=== PATIENT | female | born 1990 | race Asian ===

== ENCOUNTER 2016-12-24 06:31 | Day surgery (SDC) | payer BC ==
[2016-12-23 12:35] VITALS: BMI 37.2
[2016-12-24] MEDS ORDERED: DESFLURANE GAS 240 ML BOTTLE IH ONE (07:36)
[2016-12-24] MEDS ORDERED: MIDAZOLAM HCL 2 MG/2 ML SINGLE DOSE VIAL ONE (07:38)
[2016-12-24] MEDS ORDERED: LIDOCAINE HCL/PF 2% SDV 5ML VIAL ONE (07:48)
[2016-12-24] MEDS ORDERED: DEXAMETHASONE SOD PHOSPHATE 4 MG/1 ML VIAL ONE ×2 (07:48→11:02)
[2016-12-24] MEDS ORDERED: ROCURONIUM BROMIDE 50 MG/5 ML VIAL ONE ×2 (07:49→09:07)
[2016-12-24] MEDS ORDERED: PROPOFOL 20 ML ONE (07:49)
[2016-12-24] MEDS ORDERED: ceFAZolin SODIUM 1 GM VIAL ONE (07:50)
[2016-12-24] MEDS ORDERED: ceFAZolin SODIUM 1 GM VIAL IVPB ONE (08:11)
[2016-12-24] MEDS ORDERED: METHYLENE BLUE 1% 10 MG/1 ML VIAL ONE (09:05)
[2016-12-24] MEDS ORDERED: oxyCODONE HCL 5 MG TABLET PO PRN (12:08)
[2016-12-24] MEDS ORDERED: ONDANSETRON 4 MG/2 ML VIAL IVPUSH PRN (12:08)
--- NOTE | 2016-12-24 12:14 | SURG ---
Surgery Proofer Note Proofer: Agustin Herrera PA-C Date of Service: 12/24/16 Diagnosis: Symptomatic macromastia Procedure: Bilateral breast reduction I was present for the entirety of the operative procedure. For further detail, please refer to operative report. Visit type - Case Type Case Type: Scheduled Admission - New patient This patient is new to me today: Yes Date on this admission: 12/24/16
[2016-12-24] MEDS ORDERED: LACTATED RINGERS SOLUTION 1,000 ML IV SCH (12:15)
[2016-12-24] MEDS ORDERED: ONDANSETRON 4 MG/2 ML VIAL IVPB ONE (12:15)
--- NOTE | 2016-12-24 12:15 | OP ---
Operative Note - Note: Operative Date: 12/24/16 Pre-Operative Diagnosis: Symptomatic Macromastia Operation: Bilateral Reduction Mammaplasty Post-Operative Diagnosis: Same as Pre-op Surgeon: Satinder Calderon Vocational Rehabilitation Counselor: Agustin Herrera Anesthesiologist/OUTSOLE ROUNDER: Arvin White Anesthesia: General Estimated Blood Loss (mls): 200 Drains & Tubes with Location: Michelle Drain each side Operative Report Dictated: Yes
[2016-12-24] MEDS ORDERED: ONDANSETRON 4 MG/2 ML VIAL ONE (12:29)
--- NOTE | 2016-12-24 13:26 | OP ---
DATE OF OPERATION: 12/24/2016 PREOPERATIVE DIAGNOSIS: Symptomatic macromastia. POSTOPERATIVE DIAGNOSIS: Symptomatic macromastia. PROCEDURE PERFORMED: Bilateral reduction mammoplasty. SURGEON: Satinder Gorman MD SUSTAINABILITY ENGINEER: FABRIZIO Hawkins ANESTHESIA: General endotracheal tube. DESCRIPTION OF PROCEDURE: The patient was on the operating room table in supine position. General anesthesia was administered by the anesthesiologist. The area of the chest was prepped and draped in the usual sterile fashion. The patient had been marked 1 day prior to surgery in a standing position, and these markings were now used as a guide for surgery. The right breast was addressed first. A tourniquet was placed at the base of the right base and a 10-cm wide superior and inferiorly based pedicle (bipedicle) was designed and deepithelialized inferior to the nipple areolar complex. The pedicle was then created by medial and lateral dissections as marked. Excess tissue was removed in the medial and the lateral quadrants as well as some tissue superiorly. The long inferior portion of the pedicle was shortened using a 3-0 Biosyn suture in continuous fashion, and hemostasis was achieved with electrocautery. Total resection on the right side was 1229 g. A [place] drain was placed exiting the lateral inframammary wound, and several 3-0 Biosyn sutures were placed to tack the wound closed. The left breast was then approached, and a similar procedure was performed. The left breast, which was smaller preoperatively, had a resection of 940 g. This wound was similarly tacked closed, and the patient was moved to the sitting position to access for volume symmetry. She was then returned to the supine position for closure. Deep tissues were closed with No. 3-0 and 4-0 Biosyn suture in interrupted buried fashion. The skin was closed with a deep dermal layer of 4-0 V-Lock 90. Several 5-0 nylon sutures were used for closure as well. The [place] drains, which exited the inframammary wounds laterally, were sutured in place with 2-0 skin suture, and the V-Lock suture was loosely placed around the drain and will be pulled tight when the drain is removed tomorrow. Steri-Strips and sterile dressings were applied and secured with a surgical bra. The patient was then awoken from anesthesia without any difficulty and taken from the operating room to the recovery room in satisfactory condition having tolerated the procedure well. SATINDER GORMAN M.D. [id number]
[2016-12-24 14:02] VITALS: TEMP 97.7
[2016-12-24 15:49] VITALS: BP 148/84; PULSE 96
--- NOTE | 2016-12-25 14:03 | PATH ---
Surgical Pathology Report Patient Name: VANCE MOTLEY [facility]. Rec. #: [id number] /Age/Gender: 1990 (Age: 26) / F Account: [id number] Location: [facility] SURGICAL Taken: 12/24/2016 Received: 12/24/2016 Reported: 12/25/2016 Physicians: Satinder Calderon M.D. Specimen(s) Received A: RIGHT BREAST TISSUE B: LEFT BREAST TISSUE Clinical History Preop-macromastia Final Diagnosis A. BREAST, RIGHT, REDUCTION MAMMOPLASTY: BENIGN BREAST TISSUE WITH FOCI OF FIBROCYSTIC CHANGE. BENIGN SKIN. B. BREAST, LEFT, REDUCTION MAMMOPLASTY: BENIGN BREAST TISSUE WITH FOCI OF FIBROCYSTIC CHANGE. BENIGN SKIN. Electronically Signed Enrico Briceño M.D. Gross Description A. Received in formalin labeled "right breast tissue" is a 1241 g, 34.0 x 15.0 x 5.5 cm irregular, unoriented portion of fibrofatty tissue and [place], unremarkable skin. Sectioning reveals multiple foci of white fibrous tissue. No definitive masses are identified. Director Of Materials sections are submitted in 4 cassettes. B. Received in formalin labeled "left breast tissue" is a 955 g, 28.0 x 17.5 x 4.5 cm aggregate of multiple irregular, unoriented portions of fibrofatty tissue and [place], unremarkable skin. Sectioning reveals multiple foci of white fibrous tissue. No definitive masses are identified. Director Of Materials sections are submitted in 4 cassettes. /12/24/2016 saudi12/24/2016
== END 2016-12-24 16:00 | disposition home or self-care (01) ==
LOC: JASU-SURG 06:31
PROVIDERS: ATTEND Plastic Surgery
PROC: 0HBV0ZZ Excision of Bilateral Breast, Open Approach (ICD-10-PCS; principal; 2016-12-24 08:00)
DX: N62 Hypertrophy of breast (principal); M54.2 Cervicalgia; M54.89 Other dorsalgia; M25.512 Pain in left shoulder; M25.511 Pain in right shoulder
CPT/HCPCS: 84703; 88305-TC; 94760

== ENCOUNTER 2017-11-18 06:38 | Day surgery (SDC) | payer BC ==
[2017-11-17 09:21] VITALS: BMI 38.6
[2017-11-18] MEDS ORDERED: MIDAZOLAM HCL 2 MG/2 ML SINGLE DOSE VIAL ONE (08:11)
[2017-11-18] MEDS ORDERED: PROPOFOL 20 ML ONE ×2 (08:21)
[2017-11-18] MEDS ORDERED: ROCURONIUM BROMIDE 50 MG/5 ML VIAL ONE (08:21)
[2017-11-18] MEDS ORDERED: ceFAZolin SODIUM 1 GM VIAL IVPB ONE (08:24)
[2017-11-18] MEDS ORDERED: ONDANSETRON 4 MG/2 ML VIAL IVPUSH PRN (10:01)
[2017-11-18] MEDS ORDERED: oxyCODONE HCL 5 MG TABLET PO PRN (10:01)
[2017-11-18] MEDS ORDERED: LACTATED RINGERS SOLUTION 1,000 ML IV SCH (10:15)
--- NOTE | 2017-11-18 11:23 | OP ---
Operative Note - Note: Operative Date: 11/18/17 Pre-Operative Diagnosis: Palpable Mass Right Breast, Painful Contracted Scar Lower Right Breast with Parenchymal Descent and Breast Asymmetry after Breast Reduction Operation: Excision Breast Mass Lower Medial Quadrant, Excision of Painful Lower Breast Scar with Revision of Breast Reduction and Elevation of Breast Parenchyma for Symmetry. Post-Operative Diagnosis: Same as Pre-op Surgeon: Satinder Calderon Anesthesia: General Specimens Removed: Right Breast Mass. Thickened Breast Scar. Operative Report Dictated: Yes
--- NOTE | 2017-11-18 11:48 | OP ---
DATE OF OPERATION: 11/18/2017 PREOPERATIVE DIAGNOSES: 1. Palpable mass right breast. 2. Painful, contracted scar of the lower right breast with parenchymal descent and breast asymmetry after breast reduction. POSTOPERATIVE DIAGNOSES: 1. Palpable mass right breast. 2. Painful, contracted scar of the lower right breast with parenchymal descent and breast asymmetry after breast reduction. PROCEDURES PERFORMED: 1. Excision breast mass lower medial quadrant, right breast. 2. Excision of painful lower breast scar with revision of breast reduction and elevation of breast parenchyma for symmetry. SURGEON: Satinder Gorman MD ANESTHESIA: General via endotracheal tube. BRIEF HISTORY: The patient is a 26-year-old female who is status post bilateral breast reduction. The patient developed a postoperative infection on the right lower breast, which resulted in separation of the vertical limb and secondary healing. The patient also developed several sites of fat necrosis, which resolved except for a large mass in the left lower quadrant, which has persisted. The resulting jeanine scar in the inferior pole of the breast has allowed descent of the breast parenchyma creating significant asymmetry and a painful overlying scar. The patient now presents for correction. DESCRIPTION OF PROCEDURE: The patient was on the operating room table in supine position. General anesthesia was administered by the anesthesiologist. The area of the chest was then prepped and draped in the usual sterile fashion. The patient was marked for surgery in the standing position, and the patient is now on the operating table in a supine position, and these markings are used as a guide for surgery. The scar was excised as marked with extensions in both directions in both the inframammary folds and the lower portion of the areola. Medial and lateral flaps were then created, and a large mass inferomedially was identified. This mass was circumferentially excised, and hemostasis was achieved with electrocautery. The space was closed using 3-0 Biosyn suture in an interrupted fashion. The lower breast parenchyma was re-elevated, and pillars were sutured using 3-0 Biosyn suture in a continuous over and over fashion to elevate this region. The flaps were then further undermined both medially and laterally to facilitate closure, and this tissue was mobilized, and flaps were reapproximated centrally. These flaps were then closed in layered fashion. Deep tissues were closed with No. 3-0 Biosyn suture in interrupted buried fashion. A deep dermal layer of 4-0 V-Lock 90 was used to close the vertical limb, and multiple 4-0 nylon sutures in both simple interrupted and interrupted horizontal mattress fashion were used to further secure the skin. Sterile dressings were then applied and secured with a surgical bra. The patient was awoken from anesthesia without any difficulty. She was taken from the operating room to the recovery room in satisfactory condition having tolerated the procedure well. SATINDER GORMAN M.D. [id number]
[2017-11-18 11:50] VITALS: TEMP 97.6
[2017-11-18 13:13] VITALS: BP 120/72; PULSE 92
--- NOTE | 2017-11-19 13:54 | PATH ---
Surgical Pathology Report Patient Name: VANCE MOTLEY Med. Rec. #: [id number] /Age/Gender: 1990 (Age: 26) / F Account: [id number] Location: [facility] SURGICAL Taken: 11/18/2017 Received: 11/18/2017 Reported: 11/19/2017 Physicians: Satinder Calderon M.D. Specimen(s) Received A: SKIN FROM RIGHT BREAST B: RIGHT BREAST TISSUE Clinical History Right breast reduction Revision Final Diagnosis A. SKIN, RIGHT BREAST, EXCISION: SKIN WITH DERMAL SCAR B. RIGHT BREAST, REDUCTION REVISION: BENIGN BREAST TISSUE WITH EXTENSIVE FIBROSIS AND FAT NECROSIS. Electronically Signed Milo Victoria M.D. Gross Description A. Received in formalin labeled "skin from right breast," is a 10.5 x 5.0 cm [place], unoriented portion of skin. The epidermal surface displays focal defects. No discrete lesions are identified. Ironworker Wire Fence Erector sections are submitted in one cassette. B. Received in formalin labeled "right breast tissue," is a 22 g, 5.3 x 4.3 x 2.2 cm aggregate of multiple unoriented portions of fibroadipose tissue. Sectioning reveals foci of fibrous tissue and fat necrosis. No definitive masses are identified. Ironworker Wire Fence Erector sections are submitted in one cassette. 11/18/201711/18/2017
== END 2017-11-18 13:00 | disposition home or self-care (01) ==
LOC: JASU-SURG 06:38
PROVIDERS: ATTEND Plastic Surgery
PROC: 0HBT0ZX Excision of Right Breast, Open Approach, Diagnostic (ICD-10-PCS; 2017-11-18)
PROC: 0HRT07Z Replacement of Right Breast with Autologous Tissue Substitute, Open Approach (ICD-10-PCS; principal; 2017-11-18 08:00)
DX: N64.1 Fat necrosis of breast (principal); N63.41 Unspecified lump in right breast, subareolar; N60.31 Fibrosclerosis of right breast; L90.5 Scar conditions and fibrosis of skin; N65.1 Disproportion of reconstructed breast
CPT/HCPCS: 84703; 94760

== ENCOUNTER 2019-10-09 09:18 | Inpatient (IN) | payer BC ==
[2019-10-03 11:52] VITALS: BMI 40.3
[2019-10-09] MEDS ORDERED: ROCURONIUM BROMIDE 50 MG/5 ML SYRINGE ONE (11:45)
[2019-10-09] MEDS ORDERED: PROPOFOL 20 ML ONE ×2 (11:45)
[2019-10-09] MEDS ORDERED: DESFLURANE GAS 240 ML BOTTLE IH ONE (11:46)
[2019-10-09] MEDS ORDERED: ONDANSETRON 4 MG/2 ML VIAL ONE (11:46)
[2019-10-09] MEDS ORDERED: DEXAMETHASONE SOD PHOSPHATE 4 MG/1 ML VIAL ONE ×2 (11:46→15:47)
[2019-10-09] MEDS ORDERED: ceFAZolin SODIUM 1 GM VIAL ONE ×2 (11:46→15:47)
[2019-10-09] MEDS ORDERED: KETOROLAC TROMETHAMINE 30 MG/1 ML VIAL ONE ×2 (11:46→15:47)
[2019-10-09] MEDS ORDERED: SODIUM CHLORIDE 0.9% P/F 10 ML VIAL IJ ONE (12:47)
[2019-10-09] MEDS ORDERED: MIDAZOLAM HCL 2 MG/2 ML SINGLE DOSE VIAL ONE (12:47)
[2019-10-09] MEDS ORDERED: BUPIVACAINE HCL/PF 0.5% (5 MG/ML) 30 ML VIAL IJ ONE (12:47)
[2019-10-09] MEDS ORDERED: BUPIVACAINE HCL/PF 2.5 MG/ML - 30 ML VIAL IJ ONE (12:59)
[2019-10-09] MEDS ORDERED: BUPIVACAINE HCL/PF 0.25% (2.5MG/ML) 10 ML VIAL IJ ONE (14:39)
[2019-10-09] MEDS ORDERED: HYDROmorphone HCl 2 MG/ML VIAL IM PRN (15:06)
[2019-10-09] MEDS ORDERED: ONDANSETRON 4 MG/2 ML VIAL IVPUSH PRN ×2 (15:06→15:49)
--- NOTE | 2019-10-09 15:11 | OP ---
Operative Note - Note: Operative Date: 10/09/19 Pre-Operative Diagnosis: Morbid Obesity Operation: Laparoscopic Vertical Sleeve Gastrectomy. Wedge biopsy of left lobe of liver. Diagnostic Laparoscopy Findings: Greater curve sleeve gastrectomy performed with #[address] Wedge biopsy performed on edge of left lobe of liver Post-Operative Diagnosis: Same as Pre-op (Hepatomegaly) Surgeon: Edinson Pittman Fitness Plan Coordinator: Dexter Sanz Anesthesia: General Specimens Removed: Greater curve of stomach. Wedge biopsy of left lobe of liver Estimated Blood Loss (mls): 30 Operative Report Dictated: Yes
[2019-10-09] MEDS ORDERED: SODIUM CHLORIDE 1,000 ML IV SCH (15:15)
[2019-10-09] MEDS: METOCLOPRAMIDE HCL INJECTION 10 MG/2 ML VIAL IVPUSH SCH ×2 (15:18→21:39)
[2019-10-09 15:33] LABS: HEMOGLOBIN 12.4 GM/dl (10.7-15.3); MCH 26.2 pg (25.7-33.7); MCHC 32.7 g/dl (32.0-36.0); MEAN CELL VOLUME 80.3 fl (80-96); MEAN PLT VOLUME 8.9 fl (7.5-11.1); PLATELET COUNT 328 K/MM3 (134-434); RBC 4.73 M/mm3 (3.60-5.2); RDW 13.1 % (11.6-15.6); WHITE BLOOD COUNT 14.1 K/mm3 (4.0-10.8)
[2019-10-09 15:41] LABS: ALBUMIN 3.7 g/dl (3.4-5.0); BILIRUBIN,TOTAL 0.5 mg/dl (0.2-1); CALCIUM 8.8 mg/dl (8.5-10); CREATININE 0.7 mg/dl (0.55-1.3); POTASSIUM 3.7 mmol/L (3.5-5.1); TOT PROT 7.1 g/dl (6.4-8.2)
[2019-10-09] MEDS ORDERED: PROMETHAZINE HCL 25 MG/1 ML VIAL IVPUSH PRN (15:49)
[2019-10-09] MEDS ORDERED: ACETAMINOPHEN 1000 MG/100 ML VIAL (NON FORMULARY) IVPB ONE (15:50)
[2019-10-09] MEDS ORDERED: LACTATED RINGERS SOLUTION 1,000 ML IV SCH (16:00)
[2019-10-09] MEDS ORDERED: ACETAMINOPHEN INJECTION 100 ML IVPB ONE (16:03)
--- NOTE | 2019-10-09 18:15 | PN ---
Progress Note, Physician Chief Complaint: AWAKE ALERT SEEN IN PACU S/P SLEEVE GASTRECTOMY C/O PAIN BUT CONTROLLED DENIES SOB - Current Medication List Current Medications: Active Medications Enoxaparin Sodium (Lovenox -) 40 mg SQ DAILY [facility] Fentanyl (Sublimaze Injection -) 50 mcg IVPUSH Q5M PRN PRN Reason: PAIN-PACU ORDER X 4 DOSES ONLY Hydromorphone HCl (Dilaudid Vial -) 1 mg IM Q4H PRN PRN Reason: PAIN LEVEL 1-5 Famotidine/Sodium Chloride (Pepcid 20 Mg Premixed Ivpb -) 20 mg in 50 mls @ 100 mls/hr IVPB BID [facility] Sodium Chloride (Normal Saline -) 1,000 mls @ 150 mls/hr IV ASDIR [facility] Last Admin: 10/09/19 16:15 Dose: 0 mls Lactated Ringer's (Lactated Ringers Solution) 1,000 mls @ 125 mls/hr IV ASDIR [facility] Last Admin: 10/09/19 16:15 Dose: 300 mls Metoclopramide HCl (Reglan Injection -) 10 mg IVPUSH Q6H [facility] Last Admin: 10/09/19 15:18 Dose: 10 mg Ondansetron HCl (Zofran Injection) 4 mg IVPUSH Q4H PRN PRN Reason: NAUSEA AND/OR VOMITING Ondansetron HCl (Zofran Injection) 4 mg IVPUSH Q6H PRN PRN Reason: NAUSEA AND/OR VOMITING Promethazine HCl (Phenergan Injection -) 12.5 mg IVPUSH Q6H PRN PRN Reason: NAUSEA-FOR RESCUE AFTER 15 MIN - Objective Vital Signs: Vital Signs Temperature 97.7 F 10/09/19 16:44 Pulse Rate 94 H 10/09/19 16:44 Respiratory Rate 16 10/09/19 16:44 Blood Pressure 126/64 10/09/19 16:44 O2 Sat by Pulse Oximetry (%) 100 10/09/19 16:44 Constitutional: Yes: Mild Distress Cardiovascular: Yes: Regular Rate and Rhythm Respiratory: Yes: Diminished, On Nasal O2 Gastrointestinal: Yes: Abdomen, Obese, Tenderness Genitourinary: Yes: Miller Present Musculoskeletal: Yes: Muscle Weakness Edema: No Wound/Incision: Yes: Dressing Dry and Intact Neurological: Yes: WNL ...Motor Strength: WNL Psychiatric: Yes: WNL Labs: CBC, BMP 10/09/19 15:10 10/09/19 15:10 Problem List - Problems (1) S/P laparoscopic sleeve gastrectomy Code(s): Z98.84 - BARIATRIC SURGERY STATUS Assessment/Plan S/P SLEEVE GASTRECTOMY ON IVF NPO PAIN MEDS 02 SUPPORT INCENTIVE SPIROMETRY TOMORROW PEPCID IV REGLAN IV FOR NAUSEA CHECK LABS OOB TO CHAIR TOMORROW
--- NOTE | 2019-10-09 18:31 | OP ---
DATE OF OPERATION: 10/09/2019 PREOPERATIVE DIAGNOSIS: Morbid obesity. POSTOPERATIVE DIAGNOSES: 1. Morbid obesity. 2. Hepatomegaly. PROCEDURES PERFORMED: 1. Laparoscopic vertical sleeve gastrectomy. 2. Wedge biopsy of the left lobe of the liver. 3. Diagnostic laparoscopy. OPERATING SURGEON: Edinson Pittman MD NUCLEAR INSTRUCTOR: Dexter Sanz MD ANESTHESIA: General. EXPECTED BLOOD LOSS: 30 mL. OPERATIVE PROCEDURE: The patient was brought into the operating room, placed on the OR table in the supine position. All precautions were taken initially including padding for the back and the feet, and Venodyne boots were placed on both lower extremities. At that point, the abdomen was prepped and draped in the usual manner. A Veress needle was placed in the left upper quadrant, and a pneumoperitoneum was established. Under direct vision with a laparoscopic camera, a No. 5 bladeless trocar was placed in the left upper quadrant and then through that trocar, a laparoscopic camera was placed. Under direct vision, a No. 15 bladeless trocar was placed in the midline in the supraumbilical position and a No. 5 bladeless trocar in the right upper quadrant and No. 5 bladeless trocar below the left costal margin. A Darlyn liver retractor was then placed to the epigastrium to retract the left lobe of the liver. The patient was then placed in a 20-degree reverse Trendelenburg position by Anesthesia. The pylorus was noted on distal stomach and from that point, 6 cm was measured proximally. Here, the operating surgeon lifted the anterior abdominal wall of the stomach on the greater curve up towards the anterior abdominal wall, and the bilingual administrative assistant surgeon retracted the gastrocolic ligament inferiorly. The LigaSure device was used to dissect the gastrocolic ligament off the greater curve of the stomach. This continued in a superior and vertical direction dissecting the short gastric vessels off the greater curve until the final short gastric vessel between the superior pole of the spleen and the proximal fundus was divided. At this juncture, Anesthesia advanced a No. 36 bougie along the lesser curve. With the bougie held along the lesser curvature, a series of anuel was performed with the first 2 being black load anuel 6 cm in length along the bougie. This was followed by a series of purple load anuel also 6 cm in length and also hugging the bougie until the final staple was fired in the left upper quadrant, and the greater curve was now completely detached from the lesser curve. It should be noted that prior to firing each staple, both the anterior and posterior flores were checked that they were equal, and in the area of the esophagogastric junction approximately 1 to 1-1/2 cm of serosa remained on the anterior and posterior surfaces. There were some very minor bleeding points noted superiorly at the last 2 anuel that were fired and this staple line was then over sewn with the Endo Stitch until no further bleeding was noted. At this juncture, saline was placed around the staple line. Anesthesia inserted air into the bougie. This showed that the entire stomach distended. No obstruction and no leaks were noted. Attention was now directed to the left lobe of the liver, which was extremely enlarged and had to be moved out of the way with the retractor multiple times to visualize the stomach. A triangular-shaped piece of liver was removed from the left lobe, and this was sent off the field as a specimen to Pathology. The liver biopsy was performed with the LigaSure device and then electrocautery was used to score the parenchyma in order to stop any further oozing that was noted. At this juncture, Surgicel was introduced into the abdominal cavity and placed along the staple line from superior all the way to inferior. The resected greater curve was now removed through the No. 15 site, sent off the field as a specimen to pathology. The No. 15 trocar site was closed with endoclosure device to prevent internal hernia and to prevent bleeding. Under direct vision, all trocars were removed, and pneumoperitoneum was released. All trocar sites received 0.25% Marcaine and were closed with 4-0 Biosyn in subcuticular fashion. The No. 15 trocar site was first closed with 3-0 Vicryl on the subcutaneous tissue followed by 4-0 Biosyn in subcuticular fashion. Dressings were applied. Patient awoken from anesthesia and transferred out of the operating room to the recovery room in stable condition. Mich [id number]
[2019-10-09] MEDS: FAMOTIDINE 20 MG/50 ML IVPB 20 MG/50 ML MG IVPB SCH (21:39)
[2019-10-09 22:31] LABS: HEMOGLOBIN 12.7 GM/dl (10.7-15.3); MCH 26.5 pg (25.7-33.7); MCHC 33.4 g/dl (32.0-36.0); MEAN CELL VOLUME 79.2 fl (80-96); MEAN PLT VOLUME 9.3 fl (7.5-11.1); PLATELET COUNT 352 K/MM3 (134-434); RDW 13.2 % (11.6-15.6); WHITE BLOOD COUNT 15.8 K/mm3 (4.0-10.8)
[2019-10-09 22:51] LABS: ALBUMIN 3.6 g/dl (3.4-5.0); BILIRUBIN,TOTAL 0.7 mg/dl (0.2-1); CALCIUM 8.8 mg/dl (8.5-10); CREATININE 0.6 mg/dl (0.55-1.3); POTASSIUM 4.4 mmol/L (3.5-5.1); TOT PROT 7.3 g/dl (6.4-8.2)
[2019-10-10] MEDS: METOCLOPRAMIDE HCL INJECTION 10 MG/2 ML VIAL IVPUSH SCH ×2 (03:29→09:24)
[2019-10-10 06:55] VITALS: BP 169/68; PULSE 96; TEMP 98.5
--- NOTE | 2019-10-10 07:49 | PN ---
Progress Note, Physician Chief Complaint: AWAKE ALERT POST OP DAY 1 NO FEVER OR CHILLS DENIES CHEST PAIN OR SOB - Current Medication List Current Medications: Active Medications Enoxaparin Sodium (Lovenox -) 40 mg SQ DAILY [facility] Fentanyl (Sublimaze Injection -) 50 mcg IVPUSH Q5M PRN PRN Reason: PAIN-PACU ORDER X 4 DOSES ONLY Hydromorphone HCl (Dilaudid Vial -) 1 mg IM Q4H PRN PRN Reason: PAIN LEVEL 1-5 Famotidine/Sodium Chloride (Pepcid 20 Mg Premixed Ivpb -) 20 mg in 50 mls @ 100 mls/hr IVPB BID [facility] Last Admin: 10/09/19 21:39 Dose: 100 mls/hr Sodium Chloride (Normal Saline -) 1,000 mls @ 150 mls/hr IV ASDIR [facility] Last Admin: 10/09/19 16:15 Dose: 0 mls Lactated Ringer's (Lactated Ringers Solution) 1,000 mls @ 125 mls/hr IV ASDIR [facility] Last Admin: 10/09/19 16:15 Dose: 300 mls Metoclopramide HCl (Reglan Injection -) 10 mg IVPUSH Q6H [facility] Last Admin: 10/10/19 03:29 Dose: 10 mg Ondansetron HCl (Zofran Injection) 4 mg IVPUSH Q4H PRN PRN Reason: NAUSEA AND/OR VOMITING Last Admin: 10/10/19 06:05 Dose: 4 mg Ondansetron HCl (Zofran Injection) 4 mg IVPUSH Q6H PRN PRN Reason: NAUSEA AND/OR VOMITING Promethazine HCl (Phenergan Injection -) 12.5 mg IVPUSH Q6H PRN PRN Reason: NAUSEA-FOR RESCUE AFTER 15 MIN - Objective Vital Signs: Vital Signs Temperature 98.5 F 10/10/19 06:00 Pulse Rate 96 H 10/10/19 06:00 Respiratory Rate 18 10/10/19 06:00 Blood Pressure 169/68 10/10/19 06:00 O2 Sat by Pulse Oximetry (%) 98 10/10/19 06:00 Constitutional: Yes: Mild Distress Cardiovascular: Yes: Regular Rate and Rhythm Respiratory: Yes: WNL Gastrointestinal: Yes: Soft Genitourinary: Yes: WNL Musculoskeletal: Yes: WNL Extremities: Yes: WNL Edema: No Integumentary: Yes: WNL Wound/Incision: Yes: Dressing Dry and Intact Neurological: Yes: WNL ...Motor Strength: WNL Psychiatric: Yes: WNL Labs: CBC, BMP 10/09/19 22:00 10/09/19 22:00 Problem List - Problems (1) S/P laparoscopic sleeve gastrectomy Code(s): Z98.84 - BARIATRIC SURGERY STATUS Assessment/Plan LABS REVIEWED NO FEVERS TOLERATING BARIATRIC DIET DC HOME SEE DR JOHNSTON IN 1 WEEK
[2019-10-10 08:02] LABS: HEMATOCRIT 37.9 % (32.4-45.2); HEMOGLOBIN 12.2 GM/dl (10.7-15.3); MCH 26.1 pg (25.7-33.7); MCHC 32.1 g/dl (32.0-36.0); MEAN CELL VOLUME 81.2 fl (80-96); MEAN PLT VOLUME 9.3 fl (7.5-11.1); PLATELET COUNT 353 K/MM3 (134-434); RBC 4.67 M/mm3 (3.60-5.2); RDW 13.3 % (11.6-15.6); WHITE BLOOD COUNT 14.7 K/mm3 (4.0-10.8)
[2019-10-10 08:14] LABS: ALBUMIN 3.4 g/dl (3.4-5.0); BILIRUBIN,TOTAL 0.7 mg/dl (0.2-1); CALCIUM 8.7 mg/dl (8.5-10); CREATININE 0.5 mg/dl (0.55-1.3); POTASSIUM 4.1 mmol/L (3.5-5.1); TOT PROT 6.8 g/dl (6.4-8.2)
--- NOTE | 2019-10-10 09:05 | DS ---
Physical Exam: SUBJECTIVE: Patient seen and examined OBJECTIVE: Vital Signs Temperature 98.5 F 10/10/19 06:00 Pulse Rate 96 H 10/10/19 06:00 Respiratory Rate 18 10/10/19 06:00 Blood Pressure 169/68 10/10/19 06:00 O2 Sat by Pulse Oximetry (%) 98 10/10/19 08:07 PHYSICAL EXAM GENERAL: Awake, alert, and fully oriented, in no acute distress. HEAD: Normal with no signs of trauma. EYES: PERRL, sclera anicteric, conjunctiva clear. NECK: Normal ROM, supple without lymphadenopathy, JVD, or masses. LUNGS: Breathing comfortably, No accessory muscle use. ABDOMEN: Soft, mild epigastric tenderness, not distended, no guarding, no rebound, no masses. No organomegaly. MUSCULOSKELETAL: Normal ROM at all joints. No bony deformities or tenderness. No CVA tenderness. UPPER EXTREMITIES: warm, well-perfused. No cyanosis. Cap refill <2 seconds. No peripheral edema. LOWER EXTREMITIES: warm, well-perfused. No calf tenderness. No peripheral edema. NEUROLOGICAL: Normal speech, gait not observed. PSYCH: Cooperative. Good eye contact. Appropriate mood and affect. SKIN: Warm, dry, normal turgor, no rashes or lesions noted. LABS CBC,CMP WBC 14.7 K/mm3 (4.0-10.8) H 10/10/19 06:52 RBC 4.67 M/mm3 (3.60-5.2) 10/10/19 06:52 Hgb 12.2 GM/dl (10.7-15.3) 10/10/19 06:52 Hct 37.9 % (32.4-45.2) 10/10/19 06:52 MCV 81.2 fl (80-96) 10/10/19 06:52 MCH 26.1 pg (25.7-33.7) 10/10/19 06:52 MCHC 32.1 g/dl (32.0-36.0) 10/10/19 06:52 RDW 13.3 % (11.6-15.6) 10/10/19 06:52 Plt Count 353 K/MM3 (134-434) 10/10/19 06:52 MPV 9.3 fl (7.5-11.1) 10/10/19 06:52 Sodium 136 mmol/L (136-145) 10/10/19 06:52 Potassium 4.1 mmol/L (3.5-5.1) 10/10/19 06:52 Chloride 104 mmol/L (98-107) 10/10/19 06:52 Carbon Dioxide 24 mmol/L (21-32) 10/10/19 06:52 Anion Gap 8 MMOL/L (8-16) 10/10/19 06:52 BUN 10.0 mg/dl (7-18) 10/10/19 06:52 Creatinine 0.5 mg/dl (0.55-1.3) L 10/10/19 06:52 Est GFR (CKD-EPI)AfAm 154.81 10/10/19 06:52 Est GFR (CKD-EPI)NonAf 133.57 10/10/19 06:52 Random Glucose 111 mg/dl (74-106) H 10/10/19 06:52 Calcium 8.7 mg/dl (8.5-10) 10/10/19 06:52 Total Bilirubin 0.7 mg/dl (0.2-1) 10/10/19 06:52 AST 23 U/L (15-37) 10/10/19 06:52 ALT 23 U/L (13-61) 10/10/19 06:52 Alkaline Phosphatase 58 U/L (45-117) 10/10/19 06:52 Total Protein 6.8 g/dl (6.4-8.2) 10/10/19 06:52 Albumin 3.4 g/dl (3.4-5.0) 10/10/19 06:52 HOSPITAL COURSE: Date of Admission:10/09/19 Date of Discharge: 10/10/19 HOSPITAL COURSE: The patient was admitted to the Med-Surg Unit after elective bariatric surgery. Now, s/p laparoscopic vertical sleeve gastrectomy. The day of surgery, the patient ambulated the hallways with assistance. The patient was monitored with remote tele/continuous pulse ox. Narcotic and non-narcotic pain management control was achieved with oral and IV pain control. Upper GI series was obtained the following morning and no leak, extravastion or gastric outlet obstruction. Started on a Bariatric Stage 1 diet and tolerated well. Missy-operative IV ABX were administered in addition to GI prophylaxis. DVT prophylaxis was achieved with SCDs and early ambulation. The discharge instructions and an oral pain management plan were reviewed with the patient. All questions answered. Above plan discussed with Dr. Pittman and agreed. Minutes to complete discharge: 20 Visit type - Case Type Case Type: Scheduled - Emergency Emergency Visit: No - New patient This patient is new to me today: Yes Date on this admission: 10/10/19 - Critical Care Critical Care patient: No
--- NOTE | 2019-10-10 09:14 | PN ---
Progress Note (short form) - Note Progress Note: 28F POD1 s/p lap sleeve gastrectomy under GA-ETT. Pt states that pain is well controlled and reports no anesthetic complications. AVSS. Continue current regimen.
[2019-10-10] MEDS: FAMOTIDINE 20 MG/50 ML IVPB 20 MG/50 ML MG IVPB SCH (09:23)
[2019-10-10] MEDS ORDERED: ENOXAPARIN NA (PORCINE) 40 MG/0.4 ML DISP.SYRIN SQ SCH (10:00)
--- NOTE | 2019-10-10 11:11 | PN ---
Progress Note (short form) - Note Progress Note: POD#1 Afebrile; VSS P-92-100 Pt OOB in chair No N/V Minimal abdominal pain P/E- Abd- all incisions dry, no drainage WBC-14.7 (no change) H/H-12.2/37.9 (stable) UGI- no leak, no obstruction P- D/C pt home Begin PO clear liquids- 2 oz PO 4-5 times per day F/U in 9 days
--- NOTE | 2019-10-17 18:21 | PATH ---
Surgical Pathology Report Patient Name: VANCE MOTLEY Med. Rec. #: [id number] /Age/Gender: 1990 (Age: 28) / F Account: [id number] Location: [facility] Taken: 10/09/2019 Received: 10/09/2019 Reported: 10/13/2019 Physicians: Edinson Pittman M.D. Specimen(s) Received A: GREATER CURVATURE STOMACH B: LIVER BIOPSY Clinical History Morbid obesity Final Diagnosis A. GREATER CURVATURE OF STOMACH, LAPAROSCOPIC GASTRIC SLEEVE EXCISION: PORTION OF STOMACH SHOWING MODERATE CHRONIC GASTRITIS. IMMUNOSTAIN SHOWS NUMEROUS H. PYLORI ORGANISMS. B. 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 (SEE COMMENT) TRICHROME STAIN SHOWS NO APPRECIABLE INCREASE IN FIBROSIS. IRON STAIN SHOWS NO IRON DEPOSITS. Comment: The Non-Alcoholic Fatty Liver Disease Activity Score (ALEX) is 5/8 (steatosis: 2/3; hepatocyte balloonin/2; inflammation: 1/3). The ALEX fibrosis score is 0. Electronically Signed Chelita Stallings M.D. Gross Description A. Received in formalin, labeled "greater curvature of stomach," is a 98 gram, 17.5 x 3.5 x 3.3 cm. portion of stomach with a stapled margin of resection. The serosa is [place]-monge with minimal attached fat. The mucosa is [place]-pink with normal folds. No mucosal masses are identified. Outboard [employer] sections are submitted in one cassette. B. Received in formalin labeled "liver biopsy," is a 2.6 x 1.3 x 0.6 cm [place], irregular portion of soft tissue, consistent with a liver biopsy. The specimen is bisected and entirely submitted in one cassette. 10/11/2019 saudi10/11/2019
== END 2019-10-10 12:23 | disposition home or self-care (01) | DRG 621 ==
LOC: FM/S 09:18 → EDUNIT# 09:18 → FM/S 16:19
PROVIDERS: ADMIT Surgery; ATTEND Surgery
PROC: 0FB24ZX Excision of Left Lobe Liver, Percutaneous Endoscopic Approach, Diagnostic (ICD-10-PCS; 2019-10-09)
PROC: 0DB64Z3 Excision of Stomach, Percutaneous Endoscopic Approach, Vertical (ICD-10-PCS; principal; 2019-10-09 13:39)
DX: E66.01 Morbid (severe) obesity due to excess calories (principal); Z68.41 Body mass index [BMI] 40.0-44.9, adult; R16.0 Hepatomegaly, not elsewhere classified
CPT/HCPCS: 36415; 74240-TC-FY; 80053; 84703; 85027; 94760; J0131; J7030; Q9967